=== PATIENT | female | born 2000 ===

== ENCOUNTER 2018-02-08 18:39 | Emergency (ER) | payer MEDICAID, OTHER ==
[2018-02-08 18:45] VITALS: BMI 24.9
--- NOTE | 2018-02-08 19:26 | ED PDOC ---
Arrival/HPI - General Chief Complaint: Finger,Hand,&Wrist Time Seen by Provider: 02/08/18 18:47 Historian: Patient - History of Present Illness Narrative History of Present Illness (Text): 02/08/18 19:23 Patient is a 17 yo F with no significant PMH presents to ED due to right 2nd digit pain. Patient states that she accidentally smashed her car door on her right 2nd digit about 6 hours prior. Patient states that pain is 8 out of 10 and is isolated to that digit. Patient states that pain is worsened with movements and palpation and denies alleviating factors. Patient denies any further trauma, CP, SOB, n/v/d, abdominal pain, fever, chills, and SALAZAR. Time/Duration: 4-6 hours Symptom Onset: Sudden Symptom Course: Unchanged Quality: Throbbing Past Medical History - Provider Review Nursing Documentation Reviewed: Yes - Infectious Disease Hx of Infectious Diseases: None - Psychiatric Hx Substance Use: No - Surgical History Hx Tonsillectomy: Yes - Anesthesia Hx Anesthesia: Yes Hx Anesthesia Reactions: No Hx Malignant Hyperthermia: No Family/Social History - Physician Review Nursing Documentation Reviewed: Yes Family/Social History: No Known Family HX Smoking Status: Never Smoked Hx Alcohol Use: No Hx Substance Use: No Allergies/Home Meds Allergies/Adverse Reactions: Allergies No Known Allergies Allergy (Verified 02/08/18 18:45) Home Medications: Home Meds Medication Instructions Recorded Confirmed No Known Home Med 02/08/18 02/08/18 Review of Systems - Physician Review All systems were reviewed & negative as marked: Yes (12 point ROS reviewed and is negative other than what is stated in HPI.) - Review of Systems Constitutional: Normal Eyes: Normal ENT: Normal Respiratory: Normal Cardiovascular: Normal Gastrointestinal: Normal Genitourinary Female: Normal Musculoskeletal: Other (right 2nd digit pain) Skin: Normal Neurological: Normal Endocrine: Normal Hemo/Lymphatic: Normal Psychiatric: Normal Physical Exam Vital Signs Reviewed: Yes Vital Signs Temp Pulse Resp BP Pulse Ox 02/08/18 18:49 98.1 F 83 18 126/76 99 Temperature: Afebrile Blood Pressure: Normal Pulse: Regular Respiratory Rate: Normal Appearance: Positive for: Non-Toxic Pain Distress: Moderate Mental Status: Positive for: Alert and Oriented X 3 - Systems Exam Head: Present: Atraumatic, Normocephalic Pupils: Present: PERRL Extroacular Muscles: Present: EOMI Conjunctiva: Present: Normal Mouth: Present: Moist Mucous Membranes Neck: Present: Normal Range of Motion Respiratory/Chest: Present: Clear to Auscultation, Good Air Exchange. No: Respiratory Distress, Accessory Muscle Use Cardiovascular: Present: Regular Rate and Rhythm, Normal S1, S2. No: Murmurs Abdomen: No: Tenderness, Distention, Peritoneal Signs Back: Present: Normal Inspection Upper Extremity: Present: Other (left 2nd digit erythema, bleeding at cuticle). No: Cyanosis, Edema Lower Extremity: Present: Normal Inspection. No: Edema Neurological: Present: GCS=15, CN II-XII Intact, Speech Normal Skin: Present: Warm, Dry, Normal Color. No: Rashes Psychiatric: Present: Alert, Oriented x 3, Normal Insight, Normal Concentration Medical Decision Making ED Course and Treatment: 02/08/18 19:27 17 yo F with crush injury to right 2nd digit. Plan: - Motrin - R second finger xray - Clean and irrigate with copious amount of sterile water - Reassess and disposition 02/08/18 20:00 Right second finger xray reviewed by myself is negative for fracture. Bleeding noted at cuticle, further trepanation not required. Results were reviewed with patient and advised to use ibuprofen as needed, ice and elevate. Patient is medically stable for discharge. - RAD Interpretation Radiology Orders: 02/08/18 19:00 HAND RIGHT 2ND DIGIT (FINGER) [RAD] Stat - Medication Orders Current Medication Orders: Discontinued Medications Ibuprofen (Motrin Tab) 800 mg PO STAT STA Stop: 02/08/18 19:02 Last Admin: 02/08/18 19:16 Dose: 800 mg Disposition/Present on Arrival - Present on Arrival Any Indicators Present on Arrival: No History of DVT/PE: No History of Uncontrolled Diabetes: No Urinary Catheter: No History of Decub. Ulcer: No History Surgical Site Infection Following: None - Disposition Have Diagnosis and Disposition been Completed?: Yes Diagnosis: Injury of right index finger, Subungual hematoma of right index finger Disposition: HOME/ ROUTINE Disposition Time: 20:01 Patient Plan: Discharge Patient Problems: Current Active Problems Problem Status Onset Injury of right index finger Acute Subungual hematoma of right index finger Acute Condition: STABLE Discharge Instructions (ExitCare): Common Finger Injuries (DC), Contusion (DC) Additional Instructions: 1. May use Ibuprofen 600 mg three times a day with food as needed 2. Ice finger for up to 15 minutes at a time; have towel inbetween ice and skin to avoid ice burn 3. Elevate hand above heart as much as possible 4. Return to ED if symptoms worsen DONN Dayne SHIVBETHANIE, thank you for letting us take care of you today. Your provider was Gerber Mac DO and you were treated for HURT (R) HAND. The emergency medical care you received today was directed at your acute symptoms. If you were prescribed any medication, please fill it and take as directed. It may take several days for your symptoms to resolve. Return to the Emergency Department if your symptoms worsen, do not improve, or if you have any other problems. Please contact your doctor or call one of the physicians/clinics you have been referred to that are listed on the Patient Visit Information form that is included in your discharge packet. Bring any paperwork you were given at discharge with you along with any medications you are taking to your follow up visit. Our treatment cannot replace ongoing medical care by a primary care provider outside of the emergency department. Thank you for allowing the [facility] team to be part of your care today. Forms: [employer] (Lao)
[2018-02-08 20:07] VITALS: BP 126/72; PULSE 78; RESP 17; TEMP 98; O2SAT 98
--- NOTE | 2018-02-09 09:06 | RAD ---
PROCEDURE: Right Index finger radiographs. HISTORY: r/o fracture COMPARISON: None. TECHNIQUE: AP radiograph of the right hand, as well as spot oblique and lateral images of index finger were obtained. FINDINGS: RIGHT INDEX FINGER: There is a small lucency traversing the ulna are aspect distal tuft distal phalanx right 2nd digit which could represent trabeculation artifact versus a nondisplaced fracture. . JOINTS: Normal. SOFT TISSUES: Normal. OTHER FINDINGS: None. IMPRESSION: There is a small lucency traversing the ulna are aspect distal tuft distal phalanx right 2nd digit which could represent trabeculation artifact versus a nondisplaced fracture. . Recommend repeat radiographs 7-10 days to assess for periosteal reaction and confirm fracture
== END 2018-02-08 20:07 | disposition home or self-care (01) ==
LOC: ED 18:39
DX: S60.021A Contusion of right index finger without damage to nail, initial encounter (principal); W23.0XXA Caught, crushed, jammed, or pinched between moving objects, initial encounter